=== PATIENT | female | born 1980 | race African-American/Black ===

== ENCOUNTER 2018-08-01 08:00 | Inpatient (IN) | payer MEDICARE, OTHER ==
[2018-08-01] MEDS ORDERED: ROCURONIUM BROMIDE 10 MG/ML 5ML VIAL ONE (08:48)
[2018-08-01] MEDS ORDERED: hydrALAZINE HCL 20 MG/1 ML ONE (08:48)
[2018-08-01] MEDS ORDERED: MIDAZOLAM HCL 2 MG/2 ML VIAL ONE (08:48)
[2018-08-01] MEDS ORDERED: DEXAMETHASONE SOD PHOS 4 MG/ML VIAL ONE (08:48)
[2018-08-01] MEDS ORDERED: ceFAZolin SODIUM 1 GM VIAL ONE (08:48)
[2018-08-01] MEDS ORDERED: LACTATED RINGERS 1,000 ML IV.SOLN IV ONE (08:48)
[2018-08-01] MEDS ORDERED: SEVOFLURANE 250 ML LIQUID IH ONE (08:48)
[2018-08-01] MEDS ORDERED: FAMOTIDINE/PF 20 MG/2 ML VIAL ONE (08:48)
[2018-08-01] MEDS ORDERED: SUGAMMADEX 200 mg/2mL 200 MG/2 ML VIAL IV ONE (08:48)
[2018-08-01] MEDS ORDERED: LIDOCAINE HCL/PF 2% 100 MG/5 ML VIAL IJ ONE (08:48)
[2018-08-01] MEDS ORDERED: ONDANSETRON HCL/PF 4 MG/ 2ML VIAL ONE (08:48)
[2018-08-01] MEDS ORDERED: KETOROLAC TROMETHAMINE 30 MG/1ML VIAL ONE (08:48)
[2018-08-01] MEDS ORDERED: GLYCOPYRROLATE 0.2 MG/1 ML 1 ML ONE (08:48)
[2018-08-01] MEDS ORDERED: FENTANYL 250MCG/5ML VIAL ONE (08:48)
[2018-08-01] MEDS ORDERED: MORPHINE SULFATE 10 MG/ML VIAL ONE (08:48)
[2018-08-01] MEDS ORDERED: PROPOFOL 200 MG/20 ML VIAL IV ONE (08:48)
[2018-08-01] MEDS ORDERED: KETOROLAC TROMETHAMINE 30 MG/1ML VIAL IVP PRN (14:29)
[2018-08-01] MEDS ORDERED: LEVALBUTEROL HCL 1.25 MG/3 ML AMPUL.NEB NEB PRN (14:29)
[2018-08-01] MEDS ORDERED: MORPHINE SULFATE 4 MG/ML PREFILLED SYR IVP PRN ×2 (14:29)
[2018-08-01] MEDS ORDERED: PROMETHAZINE HCL 25 MG in 0.9 % SODIUM CHLORIDE 50 ML IV PRN (14:29)
[2018-08-01] MEDS ORDERED: MORPHINE SULFATE 2 MG/ML PREFILLED SYR ONE (15:02)
[2018-08-01] MEDS: 0.9 % SODIUM CHLORIDE 1,000 ML IV SCH (15:12)
[2018-08-01] MEDS: ENOXAPARIN SODIUM 40 MG/0.4 ML DISP.SYRIN SQ SCH (15:13)
[2018-08-01] MEDS ORDERED: diphenhydrAMINE HCL 50 MG/ML VIAL IVP PRN (15:19)
--- NOTE | 2018-08-01 15:39 | History and Physical Report ---
History of Present Illnes - History of Present Illness Reason for Visit: s/p Gastric sleeve procedure History of Present Illness: 38yo white female with long standing morbid obesity with BMI 36.5. Patient has tried various ways to lose weight but has not been successful in keeping it off. Comorbidity-HTN, chronic back pain. Patient has been seen and it was felt the she would benefit from gastric stapling procedure. She underwent this today and was admitted for further care and treatment. Patient did not have any intraoperative complications. Admitted to the floor with stable VS. Blood pressure was high during postop and was given IV Labetolol 10mg x 3 and hydralazine 20mg. - Past Medical History Cardiac: HTN Psych: Depression Musculoskeletal: Chronic low back pain - Past Surgical History Past Surgical History: Hysterectomy, Tubal Ligation, Other (ankle surgery, hip, ) - Past Family History Mother Family History: Cancer (urterine) Father Family History: None (good health) - Past Social History Smoke: No Alcohol: None Drugs: None Lives: With Family Domestic Violence: Negative - Health Maintenance Health Maintenance: denies: Influenza Vaccine, Pneumococcal Vaccine Influenza Vaccine: No Pneumonia Vaccine: No Resuscitation Status: Resusciation Status Resuscitation Status Full Code - Unable to Obtain History Unable to Obtain: No Review of Systems - Review of Systems Constitutional: negative: Fever, Chills Eyes: negative: pain, vision change, conjunctivae inflammation, redness ENT: negative: Ear Pain, Ear Discharge, Nose Pain, Nose Congestion, Mouth Pain Respiratory: negative: Cough, Dry, Shortness of Breath, Hemoptysis, SOB with Excertion, Pleuritic Pain Cardiovascular: negative: Chest Pain, Palpitations Gastrointestinal: Nausea, Abdominal Pain. negative: Vomiting, Diarrhea, Constipation, Melena Genitourinary: negative: Dysuria, Frequency, Incontinence Musculoskeletal: Back Pain. negative: Foot Pain Skin: negative: Rash Neurological: negative: Weakness, Numbness - Medications/Allergies Allergies/Adverse Reactions: Allergies Allergy/AdvReac Type Severity Reaction Status Date / Time No Known Allergies Allergy Verified 08/01/18 14:29 Home Medications: Home Medications Chlorthalidone 10 mg PO DAILY 08/01/18 Ibuprofen 600 mg PO Q6 PRN 08/01/18 Oxycodone HCl/Acetaminophen [Oxycodon-Acetaminophen 7.5-325] 7.5 mg PO Q6 PRN 08/01/18 Current Inpatient Medications: Current Inpatient Medications Cefazolin Sodium (Ancef) 1 gm IV Q8 [facility] Stop: 08/01/18 21:01 Diphenhydramine HCl (Benadryl) 25 mg IVP Q6H PRN PRN Reason: sleeping/itching Enoxaparin Sodium (Lovenox) 40 mg SQ QD [facility] Stop: 08/15/18 14:59 Last Admin: 08/01/18 15:13 Dose: 40 mg Famotidine (Pepcid) 20 mg IVP BID [facility] Stop: 08/05/18 20:59 Promethazine HCl 25 mg/ Sodium (Chloride) 51 mls @ 600 mls/hr IV Q6 PRN PRN Reason: Nausea / Vomiting Stop: 08/05/18 14:28 Sodium Chloride (Normal Saline) 1,000 mls @ 150 mls/hr IV Q8H [facility] Last Admin: 08/01/18 15:12 Dose: 150 mls/hr Ketorolac Tromethamine (Toradol) 30 mg IVP Q6 PRN PRN Reason: For Mild Pain Stop: 08/05/18 14:28 Levalbuterol HCl (Xopenex) 1.25 mg NEB Q4 PRN PRN Reason: SOA, Dyspnea, or Wheezing Stop: 08/05/18 14:28 Morphine Sulfate (Depodur) 2 mg IVP Q2 PRN PRN Reason: MODERATE PAIN Stop: 08/05/18 14:28 Last Admin: 08/01/18 15:13 Dose: 2 mg Morphine Sulfate (Depodur) 4 mg IVP Q2 PRN PRN Reason: Severe Pain Stop: 08/05/18 14:28 Ondansetron HCl (Zofran 4 Mg/2 Ml) 4 mg IVP Q6H PRN PRN Reason: Nausea / Vomiting Stop: 08/05/18 14:28 Exam - Exam General: Alert, Oriented to Person, Oriented to Place, Oriented to Time, Cooperative HEENT: Atraumatic, PERRLA, EOMI, Mouth Mucous membr. moist/[place], Nose Mucous membr. moist/[place] Neck: Normal Range of Motion Lungs: Clear to auscultation, Normal air movement, Speaks full Sentences Cardiovascular: Regular rate, Normal S1, Normal S2, No murmurs Abdomen: Soft, No hepatospenomegaly, No masses, Other (mild diffuse tenderness noted.), Decreased Bowel Sounds Integumentary: Normal, [place], Warm, Dry Extremities: No clubbing, No cyanosis, No edema, Normal pulses, No tenderness/swelling Neurological: Normal gait, Normal speech, Strength Equal Bilat, Normal tone, Sensation intact, Cranial nerves 3-12 NL Psych/Mental Status: Mental status NL, Mood NL, Appropriate Affect, Intact Judgment Assessment/Plan - Assessment/Plan (1) Morbid obesity with BMI of 40.0-44.9, adult Status: Chronic Current Visit: Yes Assessment: Patient was advised of the importance to -use incentive spirometry at least 1-2 times per hour. -Ice chips to start oral hydration to advance to clear liquids as directed. -to ambulate frequentlyroutine Post-op orders are in (2) s/p gastric sleeve Status: Acute Current Visit: Yes Assessment: stable (3) HTN (hypertension) Status: Chronic Current Visit: Yes Qualifiers: Hypertension type: essential hypertension Qualified Code(s): I10 - Essential (primary) hypertension Assessment: Will monitor. Patient will be continued on her home medications. (4) Chronic high back pain Status: Chronic Current Visit: Yes Assessment: Pain meds as ordered. Encouraged frequent ambulation. VTE Assessment - RISK FACTOR SCORE VTE RISK FACTOR SCORES: AGE 40-60 YEARS, OBESITY
[2018-08-01] MEDS: HYDROCODONE/ACETAMINOPHEN 15 ML SOLUTION PO PRN (17:00)
[2018-08-01 17:31] VITALS: BMI 36.5
[2018-08-01] MEDS: PATIENT OWN MED 1 EACH EACH PO SCH (17:33)
[2018-08-01] MEDS: ceFAZolin SODIUM 1 GM VIAL IV SCH ×2 (20:07→22:19)
[2018-08-01] MEDS: FAMOTIDINE/PF 20 MG/2 ML VIAL IVP SCH (22:21)
[2018-08-02] MEDS: METOPROLOL TARTRATE 50 MG TABLET PO SCH ×3 (00:24→23:27)
[2018-08-02] MEDS: ONDANSETRON HCL/PF 4 MG/ 2ML VIAL IVP PRN ×3 (00:41→18:17)
[2018-08-02] MEDS: 0.9 % SODIUM CHLORIDE 1,000 ML IV SCH ×4 (02:37→18:16)
[2018-08-02] MEDS: PATIENT OWN MED 1 EACH EACH PO SCH (09:21)
[2018-08-02] MEDS: FAMOTIDINE/PF 20 MG/2 ML VIAL IVP SCH ×2 (10:36→23:26)
[2018-08-02] MEDS: HYDROCODONE/ACETAMINOPHEN 15 ML SOLUTION PO PRN (12:21)
--- NOTE | 2018-08-02 12:48 | Inpatient Progress Note ---
Subjective - Required Recertification Statement I anticipate X number of days because-include discharge plan: 1 - Review of Systems Events since last encounter: Sherie is doing well. She is ambulating well. She is having some nausea, but no vomiting. She says that she was able to walk all the way around the department. Her BP is well controlled, and she is afebrile. General: Denies: Chills HEENT: Denies: Head Aches Pulmonary: Denies: Dyspnea Cardiovascular: Denies: Chest Pain Gastrointestinal: Nausea Genitourinary: Denies: Dysuria Musculoskeletal: Denies: Neck Pain Neurological: Denies: Weakness, Numbness, Incoordination Objective - Exam Vitals and I&O: Vital Signs Temp 98.7 F 08/02/18 09:45 Pulse 80 08/02/18 09:45 Resp 16 08/02/18 09:45 BP 155/82 08/02/18 09:45 Pulse Ox 95 08/02/18 09:45 Intake & Output 08/01/18 08/02/18 08/02/18 23:59 11:59 23:59 Intake Total 2900 2290 Output Total 2850 Balance 50 2290 Weight 93.44 kg Intake: IV 2850 2130 Left Antecubital 2850 2130 Oral 50 160 Output: Urine 2850 Other: # Voids 1 1 General: Alert, Oriented to Person, Oriented to Place, Oriented to Time, Morbidly Obese HEENT: Atraumatic, PERRLA, EOMI Neck: Supple, No JVD Lungs: Clear to auscultation, Normal air movement, Speaks full Sentences Cardiovascular: Regular rate Abdomen: Normal bowel sounds, Soft, No tenderness Extremities: No clubbing, No cyanosis Skin: Normal Neurological: Normal gait, Normal speech Psych/Mental Status: Mental status NL Assessment/Plan - Assessment/Plan (1) s/p gastric sleeve Status: Acute Current Visit: Yes Assessment: Recovering well (2) Chronic high back pain Status: Chronic Current Visit: Yes Assessment: Continue current pain medication. This will likely resolve with weight loss. (3) HTN (hypertension) Status: Chronic Current Visit: Yes Qualifiers: Hypertension type: essential hypertension Qualified Code(s): I10 - Essential (primary) hypertension Assessment: Well controlled (4) Morbid obesity with BMI of 40.0-44.9, adult Status: Chronic Current Visit: Yes Assessment: S/P Gastric sleeve Plan: S/P Gastric sleeve
[2018-08-02] MEDS: ENOXAPARIN SODIUM 40 MG/0.4 ML DISP.SYRIN SQ SCH (15:11)
[2018-08-02] MEDS ORDERED: METOPROLOL TARTRATE 50 MG TABLET PO ONE (17:58)
[2018-08-03] MEDS: 0.9 % SODIUM CHLORIDE 1,000 ML IV SCH (06:49)
[2018-08-03] MEDS: PATIENT OWN MED 1 EACH EACH PO SCH (07:47)
[2018-08-03] MEDS: METOPROLOL TARTRATE 50 MG TABLET PO SCH (09:43)
[2018-08-03] MEDS: FAMOTIDINE/PF 20 MG/2 ML VIAL IVP SCH (09:43)
[2018-08-03 10:30] VITALS: BP 142/85
--- NOTE | 2018-08-04 11:14 | Discharge Summary ---
DATE OF ADMISSION: August 01, 2018 DATE OF DISCHARGE: August 03, 2018 DIAGNOSES ON THIS HOSPITALIZATION: 1. Morbid obesity. 2. Hypertension. 3. Chronic back pain. PROCEDURE DONE DURING THIS HOSPITALIZATION: Gastric sleeve procedure. SUMMARIZATION OF ADMISSION AND HISTORY: This is a 38-year-old female resident of [place], [place], who had tried multiple attempts to lower her weight using diets and had not been successful. As her BMI was over 40, she opted to have bariatric surgery. HOSPITAL COURSE: She was admitted on August 01, 2018, and Dr. Espinoza performed a gastric sleeve without any significant complications on that day. Postoperative course has been fairly uneventful. She is eating clear liquids and was able to advance up to full liquids and she seems to be tolerating that well. Her vital signs on discharge showed her to be afebrile and normotensive. MEDICATIONS ON DISCHARGE: She is going to continue all of her current medications as prior to admission with the addition of: 1. Phenergan 6.25 mg per 5 mL, 10 mL p.o. every 6 hours. 2. Hydrocodone 7.5 mg per 15 mL, 10 mL p.o. every 6 hours p.r.n pain. DISCHARGE INSTRUCTIONS: She will follow up with Santhosh Young at their clinic in [place], [place], on August 13, 2018, at 10:15 a.m. as previously scheduled. JAREN
== END 2018-08-03 13:45 | disposition home or self-care (01) | DRG 621 ==
LOC: OPSURG 08:00 → SOUTH 14:15
PROVIDERS: ADMIT Family Medicine; ATTEND Family Medicine
DX: E66.01 Morbid (severe) obesity due to excess calories (principal)
CPT/HCPCS: 43235; 81025; 99231; 99232; 99238; J0360; J0690; J1100; J1650; J1885; J2001; J2250; J2270; J2405; J2704; J3490; S0028; 43775; A9270-GY; J7030; J7120